=== PATIENT | male | born 2000 | race Caucasian/White ===

== ENCOUNTER 2021-04-17 12:48 | Emergency (ER) | payer BC ==
[~2021-04-17] VITALS: Ht 180.3 cm; Wt 81.8 kg
[~2021-04-17 12:48] MED LIST: NO HOME MEDICATIONS
[2021-04-17 13:12] VITALS: BP 114/60; PULSE 65; TEMP 98.3
== END 2021-04-17 16:21 | disposition home or self-care (01) ==
LOC: COL.ER 12:48
DX: S02.2XXA Fracture of nasal bones, initial encounter for closed fracture (principal); W50.0XXA Accidental hit or strike by another person, initial encounter; Y93.67 Activity, basketball